=== PATIENT | male | born 1945 | race Hispanic/Latino ===

== ENCOUNTER 2017-05-22 08:57 | Inpatient (IN) | payer MEDICARE ==
[2017-05-22] MEDS ORDERED: Sodium Chloride 0.9% 1,000 ML IV STA (09:22)
--- NOTE | 2017-05-22 09:22 | ED PDOC ---
Arrival/HPI - General Chief Complaint: Flu-like Symptoms Time Seen by Provider: 05/22/17 09:19 Historian: Patient - History of Present Illness Narrative History of Present Illness (Text): 05/22/17 09:10 Russell Roldan is a 72 year old male, whose past medical history includes, hypertension and diabetes, who presents to the emergency department complaining of persistent coughing and vomiting for 1 week. Patient reports he has bronchitis and was prescribed antibiotics. He notes he finished the medication and the symptoms have returned. Additionally, patient states the vomit has been black. Patient denies fever, chest pain, shortness of breath, headache, or other complaints. Time/Duration: 1 week Symptom Onset: Sudden Symptom Course: Worsening Past Medical History - Provider Review Nursing Documentation Reviewed: Yes - Cardiac Hx Cardiac Disorders: Yes Hx Hypertension: Yes Hx Pacemaker: No - Pulmonary Hx Respiratory Disorders: No - Neurological Hx Neurological Disorder: No Hx Paralysis: No - HEENT Hx HEENT Disorder: No - Renal Hx Renal Disorder: No - Endocrine/Metabolic Hx Endocrine Disorders: Yes Hx Diabetes Mellitus Type 2: Yes - Hematological/Oncological Hx Blood Disorders: No Hx Blood Transfusions: No - Integumentary Hx Dermatological Disorder: No - Musculoskeletal/Rheumatological Hx Musculoskeletal Disorders: No - Gastrointestinal Hx Gastrointestinal Disorders: No - Genitourinary/Gynecological Hx Genitourinary Disorders: Yes Hx Prostate Problems: Yes - Psychiatric Hx Psychophysiologic Disorder: No Hx Emotional Abuse: No Hx Physical Abuse: No Hx Substance Use: No - Anesthesia Hx Anesthesia Reactions: No Hx Malignant Hyperthermia: No - Suicidal Assessment Feels Threatened In Home Enviroment: No Family/Social History - Physician Review Nursing Documentation Reviewed: Yes Family/Social History: Unknown Family HX Smoking Status: Light Smoker < 10 Cigarettes Daily Hx Alcohol Use: No Hx Substance Use: No Allergies/Home Meds Allergies/Adverse Reactions: Allergies Penicillins Allergy (Verified 05/22/17 09:14) RASH Home Medications: Home Meds Medication Instructions Recorded Confirmed Glyburide/Metformin HCl 2 tab PO BID 03/31/15 05/22/17 [Glyburide/Metformin 5 mg-500 mg] Tamsulosin [Flomax] 0.4 mg PO DAILY 03/31/15 05/22/17 Aspirin [Adult Low Dose Aspirin EC] 81 mg PO DAILY 05/22/17 05/22/17 Atorvastatin [Lipitor] 10 mg PO DIN 05/22/17 05/22/17 Ramipril [Altace] 2.5 mg PO DAILY 05/22/17 05/22/17 Review of Systems - Review of Systems Constitutional: absent: Fevers Eyes: absent: Vision Changes Respiratory: Cough. absent: SOB Cardiovascular: absent: Chest Pain Gastrointestinal: Vomiting. absent: Stool Changes Genitourinary Male: absent: Dysuria, Frequency Musculoskeletal: absent: Back Pain Neurological: absent: Headache, Dizziness Endocrine: absent: Diaphoresis Hemo/Lymphatic: absent: Easy Bleeding Physical Exam Vital Signs Reviewed: Yes Vital Signs Temp Pulse Resp BP Pulse Ox 05/22/17 09:07 97.6 F 118 H 19 113/57 L 97 Temperature: Afebrile Blood Pressure: Hypotensive Pulse: Tachycardic Respiratory Rate: Normal Appearance: Positive for: Well-Appearing, Non-Toxic, Comfortable Pain Distress: None Mental Status: Positive for: Alert and Oriented X 3 - Systems Exam Head: Present: Atraumatic, Normocephalic Pupils: Present: PERRL Extroacular Muscles: Present: EOMI Conjunctiva: Present: Normal Respiratory/Chest: Present: Wheezes (bilateral wheezing), Rhonchi (right base). No: Clear to Auscultation, Good Air Exchange Cardiovascular: Present: Regular Rate and Rhythm, Normal S1, S2. No: Murmurs Abdomen: Present: Tenderness (mid-epigastric tenderness), Normal Bowel Sounds. No: Distention, Peritoneal Signs Neurological: Present: GCS=15, CN II-XII Intact, Speech Normal Skin: Present: Warm, Dry, Normal Color. No: Rashes Psychiatric: Present: Alert, Oriented x 3, Normal Insight, Normal Concentration Medical Decision Making ED Course and Treatment: 05/22/17 Impression: 72 year old male with bilateral wheezing and rhonci on right base. Plan: -- Chest X-ray -- CT abdomen and pelvis -- Labs -- Urinalysis -- Sodium Chloride and Duoneb -- Reassess and disposition Progress Notes: 05/22/17 10:10 Chest X-ray: Creator : Raj Mcallister MD Dictator : Raj Mcallister MD COMPARISON: Chest radiographs 02/02/2015 FINDINGS: LUNGS:A dense infiltrate or mass is seen at the mid to inferior right lung zone with remaining lung juarez clear. PLEURA:No significant pleural effusion identified, no pneumothorax apparent. CARDIOVASCULAR:Normal. OSSEOUS STRUCTURES:No significant abnormalities. VISUALIZED UPPER ABDOMEN:Normal. OTHER FINDINGS:None. IMPRESSION: Dense infiltrate or mass mid to inferior right lung zone. Consider follow-up CT following therapy or follow-up CT in the near term during therapy. Impression: Right lower lobe infiltrate - Lab Interpretations Lab Results: 05/22/17 09:30 05/22/17 09:30 Lab Results 05/22/17 09:30: Sodium 135, Potassium 4.9, Chloride 99, Carbon Dioxide 16 L, Anion Gap 25 H, BUN 27 H, Creatinine 2.2 H, Est GFR ( Amer) 36, Est GFR ( Non-Af Amer) 30, Random Glucose 450 H*, Calcium 9.4, Total Bilirubin 1.3, AST 29 , ALT 21, Alkaline Phosphatase 49, Troponin I 0.02, Total Protein 7.1, Albumin 4.1, Globulin 3.0, Albumin/Globulin Ratio 1.4, Lipase 55 05/22/17 09:30: Urine Color Yellow, Urine Appearance Clear, Urine pH 5.5, Ur Specific [place] >= 1.030, Urine Protein 100 H, Urine Glucose (UA) >=1000, Urine Ketones Trace H, Urine Blood Trace-intact H, Urine Nitrate Negative, Urine Bilirubin Negative, Urine Urobilinogen 0.2, Ur Leukocyte Esterase Negative , Urine RBC 0 - 2, Urine WBC 0 - 2, Ur Epithelial Cells 0 - 2, Calcium Oxalate Crystal Occ, Urine Bacteria Few 05/22/17 09:30: PT 15.3 H, INR 1.38 H, APTT 32.9 05/22/17 09:30: WBC 17.6 H D, RBC 4.25, Hgb 13.2 L, Hct 38.7 L, MCV 91.1, MCH 31.1, MCHC 34.1, RDW 13.1, Plt Count 245, MPV 10.9, Gran % 84.8 H, Lymph % (Auto ) 6.5 L, Irion % (Auto) 8.5 H, Eos % (Auto) 0.1 L, Baso % (Auto) 0.1, Gran # 14.93 H, Lymph # 1.1 L, Irion # 1.5 H, Eos # 0.0, Baso # 0.02 I have reviewed the lab results: Yes - RAD Interpretation Radiology Orders: 05/22/17 09:22 ABD & PELVIS W/O PO OR IV CONT [CT] Stat 05/22/17 09:24 CHEST PORTABLE [RAD] [place] Records Management Officer: ED Physician, Radiologist - Medication Orders Current Medication Orders: Sodium Chloride (Sodium Chloride 0.9%) 1,000 mls @ 100 mls/hr IV .Q10H STA Stop: 05/22/17 19:21 Last Admin: 05/22/17 09:39 Dose: 100 mls/hr eMAR Start Stop Document 05/22/17 09:39 LANEY (Rec: 05/22/17 09:39 LANEY [id number]) Intravenous Solution Start Date 05/22/17 Start Time 09:39 Discontinued Medications Acetaminophen (Tylenol 325mg Tab) 975 mg PO STAT STA Stop: 05/22/17 09:27 Albuterol/Ipratropium (Duoneb 3 Mg/0.5 Mg (3 Ml) Ud) 3 ml IH Q15M CONNOR Stop: 05/22/17 10:01 Last Admin: 05/22/17 09:58 Dose: 3 ml Levofloxacin/Dextrose (Levaquin 750mg) 750 mg IVPB ONCE ONE Stop: 05/22/17 10:07 Ondansetron HCl (Zofran Inj) 4 mg IVP STAT STA Stop: 05/22/17 09:28 Last Admin: 05/22/17 09:40 Dose: 4 mg IVP Administration Document 05/22/17 09:40 LANEY (Rec: 05/22/17 09:41 LANEY [id number]) Charges for Administration # of IVP Administrations 1 - Scribe Statement The provider has reviewed the documentation as recorded by the Royce Mancini Provider Scribe Attestation: All medical record entries made by the Scribmary kate were at my direction and personally dictated by me. I have reviewed the chart and agree that the record accurately reflects my personal performance of the history, physical exam, medical decision making, and the department course for this patient. I have also personally directed, reviewed, and agree with the discharge instructions and disposition. Disposition/Present on Arrival - Present on Arrival Any Indicators Present on Arrival: No History of DVT/PE: No History of Uncontrolled Diabetes: No Urinary Catheter: No History of Decub. Ulcer: No History Surgical Site Infection Following: None - Disposition Have Diagnosis and Disposition been Completed?: Yes Diagnosis: Pneumonia Disposition: HOSPITALIZED Disposition Time: 10:46 Patient Plan: Admission Condition: STABLE Forms: Cubby (Chadian)
[2017-05-22] MEDS: Albuterol-Ipratrop 3 mg / 0.5 (3 ml) UD IH SCH ×4 (09:40→21:19)
[2017-05-22 10:00] LABS: BASO # 0.02 K/mm3 (0.0-2.0); BASO % 0.1 % (0.0-3.0); EOS % 0.1 % (1.5-5.0); GRAN # 14.93 (1.4-6.5); GRAN % 84.8 % (50.0-68.0); HEMATOCRIT 38.7 % (42.0-52.0); LYMPH # 1.1 (1.2-3.4); LYMPH % 6.5 % (22.0-35.0); MEAN CELL VOLUME 91.1 fl (80.0-105.0); MEAN CORPUSCULAR HEMOGLOBIN 31.1 pg (25.0-35.0); MEAN CORPUSCULAR HGB CONC 34.1 g/dl (31.0-37.0); MEAN PLATELET VOLUME 10.9 fl (7.0-11.0); MONO # 1.5 (0.1-0.6); MONO % 8.5 % (1.0-6.0); RED CELL DISTRIBUTION WIDTH 13.1 % (11.5-14.5); WHITE BLOOD COUNT 17.6 10^3/ul (4.5-11.0)
[2017-05-22 10:01] LABS: PH,URINE 5.5 (4.7-8.0); URINE BILIRUBIN NEGATIVE (NEGATIVE); URINE BLOOD TRACE-INTACT (NEGATIVE); URINE GLUCOSE (UA) >=1000 mg/dL (NEGATIVE); URINE KETONE TRACE mg/dL (NEGATIVE); URINE LEUKOCYTE ESTERASE NEGATIVE Leu/uL (NEGATIVE); URINE PROTEIN 100 mg/dL (<30 mg/dL); URINE UROBILINOGEN 0.2 E.U./dL (<1 E.U./dL)
[2017-05-22 10:06] LABS: URINE APPEARANCE CLEAR (CLEAR); URINE COLOR YELLOW (YELLOW)
[2017-05-22] MEDS ORDERED: levoFLOXacin 750 mg in D5W 150 ML BAG IVPB ONE (10:06)
--- NOTE | 2017-05-22 10:09 | RAD ---
HISTORY: cough COMPARISON: Chest radiographs 02/02/2015 FINDINGS: LUNGS: A dense infiltrate or mass is seen at the mid to inferior right lung zone with remaining lung juarez clear. PLEURA: No significant pleural effusion identified, no pneumothorax apparent. CARDIOVASCULAR: Normal. OSSEOUS STRUCTURES: No significant abnormalities. VISUALIZED UPPER ABDOMEN: Normal. OTHER FINDINGS: None. IMPRESSION: Dense infiltrate or mass mid to inferior right lung zone. Consider follow-up CT following therapy or follow-up CT in the near term during therapy.
[2017-05-22 10:17] LABS: INR 1.38 (0.93-1.08); PARTIAL THROMBOPLASTIN TIME 32.9 Seconds (25.1-36.5)
[2017-05-22 10:21] LABS: URINE BACTERIA FEW (NEG); URINE CALCIUM OXALATE CRYSTALS OCC /hpf; URINE EPITHELIAL CELLS 0 - 2 /hpf (0-5); URINE RBC 0 - 2 /hpf (0-2); URINE WBC 0 - 2 /hpf (0-6)
[2017-05-22 10:24] LABS: TROPONIN I 0.02 ng/mL
[2017-05-22 10:29] LABS: ALB/GLOB RATIO 1.4 (1.1-1.8); BILIRUBIN,TOTAL 1.3 mg/dL (0.2-1.3); CALCIUM 9.4 mg/dL (8.4-10.5); POTASSIUM 4.9 mmol/L (3.6-5.0); TOTAL PROTEIN 7.1 g/dL (5.8-8.3)
--- NOTE | 2017-05-22 10:55 | CT ---
PROCEDURE: CT Abdomen and Pelvis without intravenous contrast HISTORY: obstruction COMPARISON: None. TECHNIQUE: Without contrast.. Contrast Dose: Radiation dose: Total exam DLP = 513 mGy-cm. This CT exam was performed using one or more of the following dose reduction techniques: Automated exposure control, adjustment of the mA and/or kV according to patient size, and/or use of iterative reconstruction technique. FINDINGS: LOWER THORAX: There is dense consolidation in the right lower lobe consistent with pneumonia. Air bronchograms are seen. LIVER: Unremarkable. No gross lesion or ductal dilatation. GALLBLADDER AND BILE DUCTS: Stones are layered in the gallbladder PANCREAS: Unremarkable. No gross lesion or ductal dilatation. SPLEEN: Unremarkable. ADRENALS: Unremarkable. No mass. KIDNEYS AND URETERS: There is some stranding of the perinephric fat planes bilaterally. There is no evidence of hydronephrosis. There are no renal or ureteral stones. VASCULATURE: Unremarkable. No aortic aneurysm. BOWEL: Unremarkable. No obstruction. No gross mural thickening. APPENDIX: Unremarkable. Normal appendix. PERITONEUM: Unremarkable. No free fluid. No free air. LYMPH NODES: Unremarkable. No enlarged lymph nodes. BLADDER: Unremarkable. REPRODUCTIVE: Unremarkable. BONES: No acute fracture. OTHER FINDINGS: None. IMPRESSION: No evidence of hydronephrosis or ureteral stone. Bilateral perinephric stranding, significance uncertain.
[2017-05-22] MEDS ORDERED: Albuterol-Ipratrop 3 mg / 0.5 (3 ml) UD IH PRN (11:37)
[2017-05-22] MEDS ORDERED: GLYBURIDE PO SCH (11:45)
[2017-05-22] MEDS ORDERED: METFORMIN HCL PO SCH (11:45)
[2017-05-22] MEDS: MethylPREDNISolone 40 mg Vial IV SCH ×2 (12:07→21:59)
[2017-05-22 12:40] VITALS: BMI 23.7
[2017-05-22] MEDS ORDERED: Pneumococcal 23-Valent Vaccine IM ONE (12:41)
[2017-05-22] MEDS ORDERED: Influenza Vaccine 60 mcg/0.5 mL SYR (4YR UP) IM ONE (12:41)
--- NOTE | 2017-05-22 12:43 | CARD ---
APPROVED REPORT EKG Measurement Heart [id number] <Conclusion> Poor data quality, interpretation may be adversely affected Sinus tachycardia Otherwise normal ECG
[2017-05-22] MEDS: Promethazine/Cod 6.25mg-10mg/5ml Syr UD PO PRN ×2 (15:46→20:23)
[2017-05-22] MEDS: Insulin Reg-HIGH-Coverage SC SCH ×2 (18:14→22:00)
[2017-05-22] MEDS: Aztreonam 1 Gm in NS 100mL 100 ML IVPB SCH (21:57)
[2017-05-23] MEDS: Albuterol-Ipratrop 3 mg / 0.5 (3 ml) UD IH SCH ×4 (01:49→20:28)
--- NOTE | 2017-05-23 03:18 | HP ---
HISTORY OF PRESENT ILLNESS: The patient is 72-year-old known to me from office practice. The patient was seen almost a week ago with cough, congestion, and having fever. He was given a course of Levaquin with cough medication. States, he started to feel little better, but never recovered. This morning I got a call from that he has been coughing, has been nauseous, and thrown up once, and was having fever, so I advised them to come to emergency room for further evaluation complaining of generalized weakness and complaining of having chills. No history of hemoptysis. No hematemesis. No rectal bleeding. No chest pain. Does have shortness of breath and cough. ALLERGIES: HE IS ALLERGIC TO PENICILLIN. MEDICATIONS AT HOME: He is on Flomax 0.4 daily, ramipril 2.5 daily, Glucovance 5/500 b.i.d., atorvastatin 10 mg daily, aspirin 81 daily. SOCIAL HISTORY: He is active smoker. He smokes 3 cigars per day for the last 50 years. He socially drinks. REVIEW OF SYSTEMS: Significant for cough, congestion, and generalized weakness. PHYSICAL EXAMINATION: VITAL SIGNS: He is afebrile, pulse 118, respirations 19, blood pressure 113/57. LUNGS: Bilateral fair airflow. No rhonchi or crackle. Anteriorly, he does have rhonchi in the left lower lung region. HEART: S1 and S2 audible. ABDOMEN: Soft, nontender. No rebound. No guarding. NEUROLOGIC: He is awake, alert, oriented, and communicative. LABORATORY DATA: WBC 17.6, hemoglobin 13.2, hematocrit 38.7, and platelets 245. Chemistry: Sodium 135, potassium 4.9, chloride 99, CO2 of 16, BUN 27, creatinine 2.2, blood sugar of 450. Urinalysis is unremarkable. X-ray of the chest has dense infiltrate or mass, [id number] right lung zone. CT scan of the abdomen and pelvis has done, but has no evidence of hydronephrosis or ureteral stone, bilateral perinephric stranding. EKG shows sinus tachycardia. ASSESSMENT AND PLAN: 1. Leukocytosis. 2. Right lower lobe infiltrate. 3. Active smoker. 4. Non-insulin dependent diabetes. 5. Hypertension. PLAN: We will start the patient on his routine medication. Start him on Levaquin. He is on IV fluid. Start him on prednisone. Start him on IV antibiotics. Continue nebulizer treatment. Monitor blood sugar. We will reevaluate the patient in a.m. Telly Kaur MD
[2017-05-23] MEDS: Aztreonam 1 Gm in NS 100mL 100 ML IVPB SCH ×3 (05:24→21:31)
[2017-05-23] MEDS: Linezolid 600 mg in D5W 300 ml 600 MG/300 ML BAG IVPB SCH ×3 (05:25→21:31)
[2017-05-23] MEDS: Promethazine/Cod 6.25mg-10mg/5ml Syr UD PO PRN (05:25)
[2017-05-23] MEDS: Pantoprazole 40 mg EC Tab PO SCH (05:33)
[2017-05-23] MEDS: Insulin Reg-HIGH-Coverage SC SCH ×3 (08:33→17:12)
[2017-05-23] MEDS ORDERED: Azithromycin 500MG/NS 250ml 500 MG/250 ML BAG IVPB SCH (10:00)
[2017-05-23] MEDS: MethylPREDNISolone 40 mg Vial IV SCH ×2 (11:07→21:29)
[2017-05-23] MEDS: Insulin Lispro (HUMAlog) HIGH Coverage SC SCH ×3 (12:32→22:17)
--- NOTE | 2017-05-23 14:23 | CT ---
PROCEDURE: CT Chest without contrast HISTORY: cough failed levoquin r/o mass COMPARISON: None. TECHNIQUE: Contiguous axial images were obtained through the chest without intravenous contrast enhancement. Sagittal and coronal reconstructions were performed. Radiation dose (DLP): 411 mGy-cm. This CT exam was performed using one or more of the following dose reduction techniques: Automated exposure control, adjustment of the mA and/or kV according to patient size, and/or use of iterative reconstruction technique. FINDINGS: LUNGS: There is a dense alveolar infiltrate in the right lower lobe posteriorly. Air bronchograms are seen. The findings are most consistent with alveolar consolidation and pneumonia. MEDIASTINUM: Unremarkable thoracic aorta. No aneurysm. Normal sized heart. Main pulmonary artery unremarkable. No vascular congestion. No lymphadenopathy. PLEURA: No pleural fluid. No pneumothorax. BONES: No fracture. No destructive lesion. UPPER ABDOMEN: Grossly unremarkable. OTHER FINDINGS: None. IMPRESSION: There is a dense alveolar infiltrate in the right lower lobe posteriorly. Air bronchograms are seen. The findings are most consistent with alveolar consolidation and pneumonia.
--- NOTE | 2017-05-23 19:49 | PN ---
DATE: SUBJECTIVE: The patient is a 72-year-old, seen and examined, doing well better, and less cough. No nausea or vomiting. No diarrhea. Eating and tolerating. PHYSICAL EXAMINATION: VITAL SIGNS: He is afebrile, pulse 90, respirations 20, and blood pressure 115/80. LUNGS: Bilateral soft crackle at bases more so on the right lower lung region. HEART: S1 and S2 audible. ABDOMEN: Soft and nontender. No rebound. No guarding. NEUROLOGIC: He is awake, alert, oriented, and communicative. LABORATORY DATA: WBC is 17.6, hemoglobin 13, hematocrit 38, and platelets 245. PT is 15.3 and INR 1.38. Chemistry, his procalcitonin is 34. Legionella is negative. His CT scan of the chest, there is a dense alveolar infiltrate in the right lower lobe posteriorly. ASSESSMENT: 1. Right lower lobe pneumonia. 2. Evd-leatrpj-cqxdkbnpi diabetes. 3. Hypertension. 4. Hyperlipidemia. PLAN: We will continue the patient on current antibiotics. He is on Azactam. He is on doxycycline and getting nebulizer treatment. Follow up with CBC and CMP in a.m. Monitor his blood sugar. He is on high dose coverage and give him Levemir 10 units at bedtime. Follow up the patient in a.m. Telly Kaur MD
[2017-05-23] MEDS: Insulin Detemir 100 units/ml Vial (Levemir) SC SCH (22:18)
--- NOTE | 2017-05-24 00:34 | CON ---
DATE: 05/23/2017 LOCATION: The patient seen in room 577, bed 2. CHIEF COMPLAINT: Cough and low grade fevers times several days. HISTORY OF PRESENT ILLNESS: This is a 72-year-old male with past medical history significant for diabetes, hypertension, and high cholesterol, prostate disease, who was treated as an outpatient with Levaquin for pulmonary symptoms without improvement, who is admitted now with continued fever, low grade fevers, continued cough, mild shortness of breath. Infectious consultation requested. REVIEW OF SYSTEMS: Reveals the patient has no headaches or blurred vision. He is having pulmonary symptoms, cough, nonproductive. No abdominal pain, diarrhea, constipation, or bright red blood per rectum. PAST MEDICAL HISTORY: Significant for diabetes, hypertension, high cholesterol, and prostate disease. PAST SURGICAL HISTORY: Noncontributory. ALLERGIES: THE PATIENT IS ALLERGIC TO PENICILLIN. THE TYPE OF ALLERGY IS NOT SURE. MEDICATIONS: The patient is on Flomax and Altace and metformin and Lipitor and aspirin. PHYSICAL EXAMINATION: GENERAL: The patient is in bed, answering questions. VITAL SIGNS: He is with a temperature of 97 and blood pressure is 113/57, respiratory rate of 18, and heart rate was up to 102. HEENT: Unremarkable. NECK: Supple. LUNGS: Have decreased breath sounds in the right side. HEART: Normal S1, S2. ABDOMEN: Soft, nontender. No organomegaly or rebound or guarding or masses. LABORATORY EXAMINATION: Reveals a white count of 17,000, hemoglobin of 13, platelets of 242 with 84% granulocytosis, and coagulation is noted. INR of 1.38, and chemistries reveals the creatinine is 2.2. In 03/2015, the patient's creatinine was 1.2. Glucose is 450. LFTs are normal. Lipase is normal ____, and bicarb of 16 with an increased anion gap of 25 with sodium of 135, potassium is 4.9, and urinalysis is noted, and the patient has protein and trace ketones, however, there were 0 to 2 wbc's and few bacteria. Microbiology is pending, and the patient had a CT scan of the abdomen is noted, and a chest x-ray revealed an infiltrate in the right side. History and physical examination is reviewed. The patient's EKG reveals a QTc of 455, sinus tachycardia. ASSESSMENT AND PLAN: This is a 72-year-old male with diabetes mellitus, hypertension, high cholesterol, prostate disease, who failed as outpatient on Levaquin, now with persistent cough, low grade fevers, tachycardia, ALLERGIC TO PENICILLIN. Severe sepsis with a right lower lobe community-acquired pneumonia, failed as outpatient on Levaquin, concerned about underlying malignancy, and this patient is a emt intermediate ex-smoker and still continues to smoke intermittently and with acute kidney injury. Creatinine is changed from 1.2-2.5. Patient who is allergic to penicillin, currently on Zyvox, doxycycline, Azactam. We will check on the procalcitonin. We will check on the urine. The urine for Legionella antigen, which I doubt, should have responded to Levaquin as an outpatient. We will do a vasculitis workup, Nicholas's workup, and Goodpasture's workup because of the renal function and proteinuria. We will also order a CT scan of the chest to rule out any masses. An echo to review his ejection fraction, and we will make further recommendations. We will follow closely with you. Laz Gayle MD
[2017-05-24] MEDS: Albuterol-Ipratrop 3 mg / 0.5 (3 ml) UD IH SCH ×5 (03:30→19:31)
[2017-05-24] MEDS: Aztreonam 1 Gm in NS 100mL 100 ML IVPB SCH ×3 (05:49→22:10)
[2017-05-24] MEDS: Pantoprazole 40 mg EC Tab PO SCH (06:31)
[2017-05-24] MEDS: Insulin Lispro (HUMAlog) HIGH Coverage SC SCH ×4 (08:32→23:02)
[2017-05-24] MEDS: MethylPREDNISolone 40 mg Vial IV SCH ×2 (11:05→23:03)
[2017-05-24] MEDS: Linezolid 600 mg in D5W 300 ml 600 MG/300 ML BAG IVPB SCH ×2 (17:32→22:56)
--- NOTE | 2017-05-24 18:41 | CARD ---
APPROVED REPORT EXAM: Two-dimensional and M-mode echocardiogram with Doppler and color Doppler. INDICATION EVALUATE LVFX 2D DIMENSIONS Left Atrium (2D)3.8 (1.6-4.0cm)IVSd0.9 (0.7-1.1cm) LVDd4.5 (3.9-5.9cm)PWd0.9 (0.7-1.1cm) LVDs3.7 (2.5-4.0cm)FS (%) 16.3 % LVEF (%)34.5 (>50%) M-Mode DIMENSIONS Aortic Root3.40 (2.2-3.7cm)Aortic Cusp Exc.1.60 (1.5-2.0cm) Aortic Valve AoV Peak Mzqcuvqs379.0cm/Margot Peak GR.9mmHg Mitral Valve MV E Keeixyvh28.1cm/sMV A Irkhomoi90.8cm/sE/A ratio1.0 TDI Lateral E' Peak V9.36cm/sMedial E' Peak V6.82cm/sE/Lateral E'8.8 E/Medial E'12.0 Pulmonary Valve PV Peak Hosiizga65.0cm/sPV Peak Grad.1mmHg Tricuspid Valve TR Peak Scunnxme304sp/sRAP [id number] Peak Gr.21mmHg [id number] LEFT VENTRICLE The left ventricle is normal size. There is normal left ventricular wall thickness. The systolic function is mildly impaired.EF-35-40% There is mild hypokinesis in the apical anterior wall. Transmitral Doppler flow pattern is Grade III-reversible restrictive diastolic dysfunction. No left ventricle thrombus noted on this study. There is no ventricular septal defect visualized. There is no left ventricular aneurysm. There is no mass noted in the left ventricle. RIGHT VENTRICLE The right ventricle is normal size. There is normal right ventricular wall thickness. The right ventricular systolic function is normal. ATRIA The left atrium size is normal. The right atrium size is normal. The interatrial septum is intact with no evidence for an atrial septal defect. AORTIC VALVE The aortic valve is thickened but opens well. The aortic valve is mildly sclerotic. There is trace to mild aortic regurgitation. There is no aortic valvular stenosis. There is no aortic valvular vegetation. MITRAL VALVE The mitral valve is thickened but opens well. Mitral annular calcification is mild. Mitral regurgitation is trace to mild. There is no mitral valve stenosis. There is no evidence of mitral valve prolapse. TRICUSPID VALVE The tricuspid valve leaflets are thickened , but open well. There is trace tricuspid regurgitation.RVSP-31 mmof Hg. There is no tricuspid valve stenosis. There is no tricuspid valve prolapse or vegetation. PULMONIC VALVE The pulmonary valve is normal in structure. There is trace pulmonic valvular regurgitation. There is no pulmonic valvular stenosis. GREAT VESSELS The aortic root is normal in size. The ascending aorta is normal in size. The pulmonary artery is normal. The IVC is normal in size and collapses >50% with inspiration. PERICARDIAL EFFUSION There is no pleural effusion. There is a trace pericardial effusion. <Conclusion> Normal chamber Size. EF-35-40% There is trace to mild aortic regurgitation. Mitral regurgitation is trace to mild. There is trace tricuspid regurgitation.RVSP-31 mmof Hg. There is a trace pericardial effusion. No Obvious vegetation noted in this study.
[2017-05-24] MEDS: Promethazine/Cod 6.25mg-10mg/5ml Syr UD PO PRN (19:24)
--- NOTE | 2017-05-24 20:17 | PN ---
DATE: SUBJECTIVE: The patient is a 72-year-old, seen and examined. Doing well. Want to take shower, otherwise doing well. He states he still have body aches and pain, less cough. PHYSICAL EXAMINATION: VITAL SIGNS: Temperature 99, pulse 90, respirations 20, blood pressure 111/75. LUNGS: Soft crackle at right lung base. HEART: S1 and S2 audible. ABDOMEN: Soft, nontender. No rebound. No guarding. NEUROLOGIC: The patient is awake, alert, oriented, communicative. LABORATORY DATA: There is no new available today. ASSESSMENT AND PLAN: 1. Right lower lobe pneumonia. 2. Qeb-evgeoia-pfatupqvb diabetes. 3. Hypertension. 4. Hyperlipidemia. 5. Leukocytosis. PLAN: We will continue on current antibiotics. We will follow up CBC and CMP in a.m. Telly Kaur MD
--- NOTE | 2017-05-24 20:24 | PN ---
DATE: 05/24/2017 SUBJECTIVE: The patient is in bed, in no acute distress. No fevers and no chills. The patient was seen early this morning. PHYSICAL EXAMINATION: VITAL SIGNS: Temperature is 99, blood pressure is 111/70, respiratory rate is 20, heart rate of 98. HEENT: Unremarkable. NECK: Supple. LUNGS: Have decreased breath sounds. HEART: Normal S1 and S2. ABDOMEN: Soft, nontender. LABORATORY EXAMINATION: Reveals a white count of 17,600, hemoglobin of 13, platelets of 245. Chemistries reveal a BUN of 27, creatinine of 2.2. Urinalysis is noted. Urine for Legionella antigen is negative. The patient had a CAT scan of the chest which is read as a dense alveolar infiltrate in the right lower lobe posteriorly consistent with an alveolar consolidation pneumonia. The patient's procalcitonin is 34.2 with a creatinine of 2.2. The patient is on aztreonam, doxycycline, and Zyvox. Dr. Kaur's note from yesterday is reviewed. ASSESSMENT AND PLAN: A 72-year-old male with diabetes mellitus, hypertension, high cholesterol, prostate disease, who failed as an outpatient on p.o. Levaquin with persistent cough, was admitted with tachycardia, leukocytosis. He is ALLERGIC TO PENICILLIN. Severe sepsis with right lower lobe community-acquired pneumonia and failed as outpatient on Levaquin and CAT scan is consistent with a right lower lobe, currently on Zyvox, doxycycline, and the Azactam. We will continue the present course and check on a repeat WBCs, and we will make further recommendations. Laz Gayle MD
[2017-05-24] MEDS: Insulin Detemir 100 units/ml Vial (Levemir) SC SCH (22:57)
[2017-05-25] MEDS: Albuterol-Ipratrop 3 mg / 0.5 (3 ml) UD IH SCH ×4 (03:05→19:47)
[2017-05-25] MEDS: Aztreonam 1 Gm in NS 100mL 100 ML IVPB SCH ×3 (06:12→21:21)
[2017-05-25 07:42] LABS: BASO # 0.01 K/mm3 (0.0-2.0); BASO % 0.1 % (0.0-3.0); GRAN # 9.55 (1.4-6.5); GRAN % 87.8 % (50.0-68.0); HEMATOCRIT 31.4 % (42.0-52.0); LYMPH # 0.8 (1.2-3.4); LYMPH % 7.4 % (22.0-35.0); MEAN CELL VOLUME 88.2 fl (80.0-105.0); MEAN CORPUSCULAR HEMOGLOBIN 30.6 pg (25.0-35.0); MEAN CORPUSCULAR HGB CONC 34.7 g/dl (31.0-37.0); MEAN PLATELET VOLUME 11.4 fl (7.0-11.0); MONO # 0.5 (0.1-0.6); MONO % 4.7 % (1.0-6.0); RED CELL DISTRIBUTION WIDTH 13.3 % (11.5-14.5); WHITE BLOOD COUNT 10.9 10^3/ul (4.5-11.0)
[2017-05-25] MEDS: Pantoprazole 40 mg EC Tab PO SCH (07:50)
[2017-05-25] MEDS: Insulin Lispro (HUMAlog) HIGH Coverage SC SCH ×4 (08:18→23:12)
[2017-05-25 08:32] LABS: ALB/GLOB RATIO 1.1 (1.1-1.8); ALKALINE PHOSPHATASE 44 U/L (38-126); ALT/SGPT 19 U/L (7-56); AST/SGOT 24 U/L (17-59); BILIRUBIN,TOTAL 0.5 mg/dL (0.2-1.3); BLOOD UREA NITROGEN 33 mg/dL (7-21); CALCIUM 8.6 mg/dL (8.4-10.5); CARBON DIOXIDE 19 mmol/L (21-33); CHLORIDE 108 mmol/L (98-107); GFR AFRICAN-AMERICAN > 60; POTASSIUM 4.4 mmol/L (3.6-5.0); SODIUM 138 mmol/L (132-148)
[2017-05-25 09:38] LABS: GLUCOSE,RANDOM 347 mg/dL (70-110)
[2017-05-25] MEDS: MethylPREDNISolone 40 mg Vial IV SCH (10:49)
[2017-05-25] MEDS: Linezolid 600 mg in D5W 300 ml 600 MG/300 ML BAG IVPB SCH ×2 (11:24→23:49)
--- NOTE | 2017-05-25 19:01 | PN ---
DATE: SUBJECTIVE: The patient is a 72-year-old, seen and examined, sitting in chair comfortably, eating and tolerating. No nausea or vomiting. Complains of cough after he has nebulizer treatment. PHYSICAL EXAMINATION: VITAL SIGNS: He is afebrile. Pulse 74, respirations 18, blood pressure 124/79. LUNGS: Right lower lung has some crackles and occasional expiratory rhonchi. HEART: S1, S2 audible. ABDOMEN: Soft, nontender. No rebound. No guarding. NEUROLOGIC: The patient is awake, alert, oriented. Able to communicate. LABORATORY EXAM: WBC is 10.9, hemoglobin 10.9, hematocrit 31, platelet of 217. Chemistry: Sodium 138, potassium 4.4, chloride 108, CO2 19, BUN 33, creatinine 1.2, blood sugar of 347. ASSESSMENT AND PLAN: 1. Right lower lobe pneumonia. 2. Asthmatic bronchitis. 3. Hypertension. PLAN: We will continue the patient on current antibiotics. Continue nebulizer treatment. Continue Azactam and doxycycline. Monitor blood sugar. I will add Januvia 100 daily. Cut down his steroid to 20 q.12. Currently, he is on Zyvox. We will continue that. Discussed with Dr. Gayle. Might be able to discharge tomorrow morning on p.o. doxycycline and Zyvox. Telly Kaur MD
--- NOTE | 2017-05-25 23:11 | PN ---
DATE: 05/25/2017 SUBJECTIVE: The patient is in bed, in no acute distress, was seen early this morning. No fevers and no chills. PHYSICAL EXAMINATION: VITAL SIGNS: Temperature is 98, blood pressure is 110/70 and respiratory rate is 20. HEENT: Examination of HEENT is unremarkable. NECK: Supple. LUNGS: Have decreased breath sounds. HEART: Normal S1 and S2. ABDOMEN: Soft. LABORATORY DATA: Laboratory examination is noted. White count is down to 10,000. DIAGNOSTIC DATA: CAT scan of the chest is reviewed. ASSESSMENT AND PLAN: This is a 72-year-old male with diabetes, hypertension, high cholesterol, prostate disease, failed as an outpatient on p.o. Levaquin may be completed with p.o. antibiotics upon discharge. Follow up with CAT scan and imaging to resolution. Laz Gayle MD
[2017-05-25] MEDS: Insulin Detemir 100 units/ml Vial (Levemir) SC SCH (23:45)
[2017-05-26] MEDS: Albuterol-Ipratrop 3 mg / 0.5 (3 ml) UD IH SCH ×3 (01:46→13:13)
[2017-05-26 03:51] VITALS: RESP 22
[2017-05-26] MEDS: Pantoprazole 40 mg EC Tab PO SCH (06:14)
[2017-05-26] MEDS: Aztreonam 1 Gm in NS 100mL 100 ML IVPB SCH (06:15)
[2017-05-26] MEDS: Insulin Lispro (HUMAlog) HIGH Coverage SC SCH (09:02)
[2017-05-26] MEDS: Linezolid 600 mg in D5W 300 ml 600 MG/300 ML BAG IVPB SCH (09:03)
[2017-05-26 09:30] VITALS: BP 131/87; PULSE 75; TEMP 98.7; O2SAT 100
[2017-05-26] MEDS ORDERED: Pneumococcal 23-Valent Vaccine IM ONE (15:33)
--- NOTE | 2017-05-26 16:45 | CP.PCM.PN ---
Subjective - Date & Time of Evaluation Date of Evaluation: 05/26/17 Time of Evaluation: 12:30 - Subjective Subjective: Comfortable on a chair, no fevers, not in distress, much improved cough and breathing. Objective - Vital Signs/Intake and Output Vital Signs (last 24 hours): Temp Pulse Resp BP Pulse Ox 98.7 F 75 22 131/87 100 05/26/17 09:28 05/26/17 09:28 05/26/17 09:28 05/26/17 09:28 05/26/17 09:28 Intake and Output: 05/26/17 05/26/17 06:59 18:59 Intake Total 660 Balance 660 - Medications Medications: Current Medications Acetaminophen (Tylenol 325mg Tab) 650 mg PO Q6H PRN PRN Reason: Fever >100.4 F Albuterol/Ipratropium (Duoneb 3 Mg/0.5 Mg (3 Ml) Ud) 3 ml IH Q2H PRN PRN Reason: Shortness of Breath Last Admin: 05/25/17 03:58 Dose: 3 ml Albuterol/Ipratropium (Duoneb 3 Mg/0.5 Mg (3 Ml) Ud) 3 ml IH [id number] COUNTS INCLUDE 234 BEDS AT THE [facility] Last Admin: 05/26/17 13:13 Dose: 3 ml Aspirin (Ecotrin) 81 mg PO DAILY COUNTS INCLUDE 234 BEDS AT THE [facility] Last Admin: 05/26/17 09:51 Dose: 81 mg Atorvastatin Calcium (Lipitor) 10 mg PO DIN COUNTS INCLUDE 234 BEDS AT THE [facility] Last Admin: 05/25/17 17:11 Dose: 10 mg Doxycycline Hyclate (Doryx) 100 mg PO Q12 COUNTS INCLUDE 234 BEDS AT THE [facility] Glyburide (Micronase) 10 mg PO BID COUNTS INCLUDE 234 BEDS AT THE [facility] Last Admin: 05/26/17 11:48 Dose: 10 mg Aztreonam (Azactam 1 Gm) 100 mls @ 100 mls/hr IVPB Q8 COUNTS INCLUDE 234 BEDS AT THE [facility] PRN Reason: Protocol Stop: 05/29/17 22:01 Last Admin: 05/26/17 06:15 Dose: 100 mls/hr Linezolid (Zyvox 600mg/300ml D5w) 600 mg in 300 mls @ 200 mls/hr IVPB Q12 COUNTS INCLUDE 234 BEDS AT THE [facility] PRN Reason: Protocol Stop: 05/29/17 23:01 Last Admin: 05/26/17 09:03 Dose: 200 mls/hr Insulin Detemir (Levemir) 12 unit SC [facility] Last Admin: 05/25/17 23:45 Dose: 12 unit Insulin Human Lispro (Humalog High) 0 units SC ACHS COUNTS INCLUDE 234 BEDS AT THE [facility] PRN Reason: Protocol Last Admin: 05/26/17 09:02 Dose: 2 units Ondansetron HCl (Zofran Inj) 4 mg IVP Q6H PRN PRN Reason: Nausea/Vomiting Pantoprazole Sodium (Protonix Ec Tab) 40 mg PO 0630 COUNTS INCLUDE 234 BEDS AT THE [facility] Last Admin: 05/26/17 06:14 Dose: 40 mg Promethazine HCl/Codeine (Phenergan/Codeine Oral Syrup) 5 ml PO Q4H PRN PRN Reason: Cough and congestion Last Admin: 05/24/17 19:24 Dose: 5 ml Sitagliptin Phosphate (Januvia) 100 mg PO DAILY COUNTS INCLUDE 234 BEDS AT THE [facility] Last Admin: 05/26/17 09:50 Dose: 100 mg Tamsulosin HCl (Flomax) 0.4 mg PO DAILY COUNTS INCLUDE 234 BEDS AT THE [facility] Last Admin: 05/26/17 09:50 Dose: 0.4 mg - Labs Labs: 05/25/17 06:30 05/25/17 06:30 PT 15.3 SECONDS (9.4-12.5) H 05/22/17 09:30 INR 1.38 (0.93-1.08) H 05/22/17 09:30 APTT 32.9 Seconds (25.1-36.5) 05/22/17 09:30 - Constitutional Appears: Non-toxic - Head Exam Head Exam: NORMAL INSPECTION - ENT Exam ENT Exam: Mucous Membranes Moist - Neck Exam Neck Exam: absent: Lymphadenopathy, Meningismus - Respiratory Exam Respiratory Exam: Decreased Breath Sounds - Cardiovascular Exam Cardiovascular Exam: +S1, +S2 - GI/Abdominal Exam GI & Abdominal Exam: Soft. absent: Tenderness Assessment and Plan - Assessment and Plan (Free Text) Plan: Assessment Sepsis due to right lower lobe community-acquired pneumonia failed outpatient therapy with Levaquin, now clinically improving DM HTN dyslipidemia Plan Can be switched to PO Zyvox and Doxycycline to complete 5-7 days of therapy with outpatient follow up with PMD
--- NOTE | 2017-05-27 03:29 | DS ---
HISTORY OF PRESENT ILLNESS: The patient is a 72-year-old, seen and examined, sitting in chair, and seems to be comfortable. No nausea, vomiting, or diarrhea. No fever. No chills. The patient was treated as outpatient with Levaquin, but he states he felt somewhat better, but never recovered 100% and came in with shortness of breath and fever, given IV antibiotics and responded well. The patient is pain free, cough has improved, and being discharged today. PHYSICAL EXAMINATION: GENERAL: He is awake, alert, oriented, and communicative. VITAL SIGNS: He is afebrile, pulse 75, respirations 22, and blood pressure 131/87. LUNGS: Bilateral good airflow. No rhonchi or crackle. HEART: S1 and S2 audible. ABDOMEN: Soft and nontender. No rebound. No guarding. NEUROLOGIC: The patient is awake, alert, oriented, and communicative. LABORATORY DATA: There are no new labs available today. ASSESSMENT: 1. Right lower lobe pneumonia. 2. [id number] diabetes. 3. Hypertension. 4. Hyperlipidemia. PLAN: The patient is being discharged today on p.o. Zyvox 600 twice a day and doxycycline 100 twice a day for one more week and he will follow up in office next week. Telly Kaur MD
== END 2017-05-26 17:30 | disposition home or self-care (01) | DRG 194 ==
LOC: ED 08:57 → ERH 10:41 → 5RSO 11:37
PROVIDERS: ADMIT Internal Medicine; ATTEND Internal Medicine
DX: J18.9 Pneumonia, unspecified organism (principal); N17.9 Acute kidney failure, unspecified; E11.9 Type 2 diabetes mellitus without complications; I10 Essential (primary) hypertension; F17.290 Nicotine dependence, other tobacco product, uncomplicated; E78.00 Pure hypercholesterolemia, unspecified; J45.909 Unspecified asthma, uncomplicated; N42.9 Disorder of prostate, unspecified; Z79.84 Long term (current) use of oral hypoglycemic drugs; Z79.82 Long term (current) use of aspirin; Z88.0 Allergy status to penicillin